=== PATIENT | female | born 1990 | race African-American/Black ===

== ENCOUNTER 2018-07-30 08:25 | Day surgery (SDC) | payer OTHER ==
[2018-07-30 08:32] LABS: Absolute Lymphocytes (CBC) 1.2 K/uL (0.7-4.9); Absolute Monocytes 0.7 K/uL (0.1-1.3); Absolute Neutrophil 3.8 K/uL (1.8-8.0); Basophils % 0.3 % (0-1.3); Eosinophils % 0.5 % (0-4.4); Hematocrit 41.7 % (36.0-45.0); Lymphocytes % 21.3 % (15.3-44.8); MPV 9.5 fL (7.6-11.3); Monocytes % 11.6 % (3.3-12.3); RBC Red Blood Cell Count 5.29 M/uL (3.86-4.86)
[2018-07-30 08:41] LABS: Specific Gravity >= 1.030 (1.005-1.030)
[2018-07-30] MEDS ORDERED: CEFAZOLIN SODIUM 1 GM/VIAL ONE (09:00)
[2018-07-30] MEDS ORDERED: NS 0.9% VIAL 20 ML ONE (09:00)
[2018-07-30] MEDS ORDERED: BACITRACIN 50000 UNIT VIAL ONE (09:01)
[2018-07-30] MEDS ORDERED: Mastisol Adhesive Liq ONE (09:01)
[2018-07-30] MEDS ORDERED: GENTAMICIN SULF 80 MG/2ML INJ ONE (09:01)
[2018-07-30] MEDS ORDERED: Ringers Lactate 1,000 ML IV ONE ×3 (09:01→09:04)
[2018-07-30] MEDS ORDERED: CEFAZOLIN/SWI 1gm 1 GM/10 ML SYR ONE (09:04)
[2018-07-30] MEDS ORDERED: SCOPOLAMINE HYDROBROMIDE PATCH TD ONE (09:04)
[2018-07-30] MEDS ORDERED: MIDAZOLAM HCL 2 MG/2 ML INJ ONE (09:05)
[2018-07-30] MEDS ORDERED: LIDOCAINE 2% MPF 5 ML VIAL ONE (09:05)
[2018-07-30] MEDS ORDERED: PROPOFOL 200 MG/20 ML VIAL IV ONE (09:05)
[2018-07-30] MEDS ORDERED: FENTANYL CITR 250 MCG/5 ML ONE (09:06)
[2018-07-30] MEDS ORDERED: ROCURONIUM 50 MG/5 ML VIAL IV ONE ×2 (09:06→12:32)
[2018-07-30] MEDS ORDERED: ONDANSETRON 4 MG/2 ML VIAL ONE (09:07)
[2018-07-30] MEDS ORDERED: Phenylephrine HCl 10 MG/ML 1 ML VIAL ONE (11:30)
[2018-07-30] MEDS ORDERED: MORPHINE 10 MG/ML VIAL ONE (14:00)
[2018-07-30] MEDS ORDERED: KETOROLAC 30 MG/ML INJ ONE (14:00)
[2018-07-30] MEDS ORDERED: GLYCOPYRROLATE 0.2 MG/ML SYR ONE (14:19)
[2018-07-30] MEDS ORDERED: NEOSTIGMINE 1 MG/ML -10 ML VIAL ONE (14:19)
[2018-07-30] MEDS: HYDROMORPHONE HCL 1 MG/ML INJ ONE ×2 (14:33→14:38)
[2018-07-30] MEDS: HYDROMORPHONE HCL 2 MG/ML inj ONE ×3 (14:43→14:57)
--- NOTE | 2018-07-31 01:49 | OP ---
Date of Procedure: 07/30/2018 Surgeon: Jerry Ulloa MD Divemaster: Jj. Preoperative Diagnosis: Breast descent. Postoperative Diagnosis: Breast descent. Procedure Performed: Breast lifts. Anesthesia: General. Procedure In Detail: After satisfactory induction of general anesthesia, chest was prepped with Dura Prep. Dry sterile drapes were applied in the usual manner. A 5-cm template was used to outline the right and left areola. Then, transverse curvilinear incisions were made. The intervening skin was d e-epithelialized with dermabrader or EpiCut. A transverse incision was made. Then, full-thickness _ cm thick, flaps were elevated towards the sternum, clavicle, anterior and axillary line. B oth sides were done simultaneously. Then, the inferior incision was made. De-epithelialized tissue was formed into a cone using 2-0 PDS suture. Straps were elevated on the right breast at 12 o'clock, 1:30, and 3 o'clock position and mirror image was done on the opposite breast. Straps were then wov en in and out of the pectoralis major muscle, back to the cone, back to themselves eventually tied wi th 2-0 PDS. Flap at the 3 o'clock position was sewn over the sternum at the 3 o'clock position with 2-0 Ethibond. Mirror image was done on the left side. Wounds were carefully stapled shut. The shauna ent sat up, site examined for symmetry, and returned to supine position. States were removed. The w ounds were irrigated with antibiotic solution. A 10 ASHLEY was brought out axilla and then the wound was closed in layers with 3-0 Vicryl subcu, 3-0 PDS running subcuticular, tied in the vertical meridian of the breast. Both sides were done simultaneously. Then, the tissue was excised. Using 5 cm templ ate, nipples were delivered and sewn with interrupted 4-0 PDS followed by 4-0 PDS running subcuticula r. Dressings consisted of tincture of benzoin, Steri-Strips, 5x5s, fluffs, and Karl wrap. The patien t tolerated the procedure well and returned to recovery room. The amount removed from the right vee st was 26 g and 24 from the left. GH/MODL Voice ID: [id number] Report ID: [id number]
== END 2018-07-30 17:04 | disposition home or self-care (01) ==
LOC: OR 08:25
PROVIDERS: ATTEND Specialist
PROC: 0H0V0ZZ Alteration of Bilateral Breast, Open Approach (ICD-10-PCS; principal; 2018-07-30 09:00)
DX: N64.81 Ptosis of breast (principal)
CPT/HCPCS: 36415; 81025; 85025; 88305; J0690; J1170; J1580; J2250; J2370; J2405; J2704; J2710; J3010